=== PATIENT | male | born 1975 | race Caucasian/White ===

== ENCOUNTER 2024-05-19 19:07 | Emergency (ER) | payer OTHER ==
[~2024-05-19] VITALS: Ht 182.9 cm; Wt 151.9 kg
[2024-05-20 02:49] LABS: BASO # 0.1 10^3/uL (0.0-0.2); BASO % 0.7 % (0.0-1.0); EOS # 0.2 10^3/uL (0.0-0.5); EOS % 2.1 % (0.0-3.0); HEMATOCRIT 37.6 % (42.0-52.0); HEMOGLOBIN 12.8 g/dl (13.5-17.5); LYMPH # 2.1 10^3/uL (1.5-5.0); LYMPH % 27.6 % (24.0-44.0); MEAN CORPUSCULAR VOLUME 85.1 fl (80.0-96.0); MONO # 0.8 10^3/uL (0.0-0.8); MONO % 10.8 % (2.0-8.0); NEUTROPHILS # 4.4 10^3/uL (1.5-8.5); NEUTROPHILS % 58.3 % (36.0-66.0); PLATELET COUNT, AUTOMATED 214 10^3/uL (150-450); RED BLOOD COUNT 4.42 10^6/uL (4.30-6.10); WHITE BLOOD COUNT 7.6 10^3/uL (4.0-10.0)
[2024-05-20 03:02] LABS: ERYTHROCYTE SEDIMENTATION RATE 46 mm/hr (0-20)
[2024-05-20 03:13] LABS: ALBUMIN 3.3 G/DL (3.2-5.2); ALKALINE PHOSPHATASE 99 U/L (46-116); ALT/SGPT 38 U/L (7.0-40); AST/SGOT 28 U/L (<34); BILIRUBIN,DIRECT 0.2 MG/DL (<0.4); BILIRUBIN,TOTAL 0.7 MG/DL (0.3-1.2); CK-MB VALUE MASS < 1.0 NG/ML (<3.6); CPK CREATINE PHOSPHOKINASE 378 U/L (46-171); MB/CK RELATIVE INDEX 0.26 (< OR =4); TOTAL PROTEIN 6.9 G/DL (5.7-8.2)
[2024-05-20 03:15] LABS: FREE T4 1.28 NG/DL (0.89-1.76)
[2024-05-20 03:16] LABS: THYROID STIMULATING HORMONE 5.269 uIU/ML (0.55-4.78)
[2024-05-20 04:27] LABS: CK-MB VALUE MASS 1.4 NG/ML (<3.6); MB/CK RELATIVE INDEX 0.38 (< OR =4)
[2024-05-20] MEDS ORDERED: CEFD300C PO (05:04)
[2024-05-20] MEDS: cefTRIAXone SOD 2 GM in DEXTROSE 5% (D5W) ADV/MINI-BAG 50 ML IV ONE (05:16)
[2024-05-20 05:55] VITALS: BP 129/80; TEMP 97.9; O2SAT 96
== END 2024-05-20 05:57 | disposition home or self-care (01) ==
LOC: M ED 19:07
DX: J18.9 Pneumonia, unspecified organism (principal); I45.81 Long QT syndrome; I10 Essential (primary) hypertension; E03.9 Hypothyroidism, unspecified; G47.30 Sleep apnea, unspecified; F17.200 Nicotine dependence, unspecified, uncomplicated; Z88.0 Allergy status to penicillin; Z79.2 Long term (current) use of antibiotics
CPT/HCPCS: 70450; 71045; 80047; 80076; 81001; 82550; 82553; 83605; 84439; 84443; 84484; 85025; 85652; 86140; 87040; 87486; 87581; 87633; 87798; 93005; 96365; 99284; J0696